=== PATIENT | male | born 1945 | race African-American/Black ===

== ENCOUNTER 2017-07-18 11:40 | Emergency (ER) | payer MEDICARE ==
[~2017-07-18] VITALS: Ht 195.6 cm; Wt 114.0 kg
[~2017-07-18 11:40] MED LIST: CHOL50008 PO; DULA10IN SQ; EMPA1TAB PO; LISI-515 PO; LIVA2TAB PO; LIVA4TAB PO; PERI8.6T PO; PIOG1TAB39 PO; SOTA80TA PO; TOPA50TA7 PO; VERA1TAB17 PO; VIAG100T PO; WARF-22 PO; WARF4TAB51 PO; [UNRECOGNIZED DRUG - CODE]
[2017-07-18 11:43] VITALS: BP 159/90; PULSE 77; RESP 17; TEMP 97.9; O2SAT 99
[2017-07-18] MEDS ORDERED: CHOL5000 PO (12:15)
[2017-07-18] MEDS ORDERED: LINA1TAB3 PO (12:15)
[2017-07-18] MEDS ORDERED: PRIM50TA5 PO (12:15)
[2017-07-18] MEDS ORDERED: XARE20TA PO (12:15)
[2017-07-18] MEDS ORDERED: ERGO2000 PO (12:15)
[2017-07-18] MEDS ORDERED: TOVI4TAB PO (12:15)
[2017-07-18] MEDS ORDERED: CALC0.009 TOPICAL (12:15)
[2017-07-18] MEDS ORDERED: GLIM4TAB PO (12:15)
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
[2017-07-18 13:16] LABS: INTERNATIONAL NORMALIZED RATIO 1.2 RATIO; PROTHROMBIN TIME - PATIENT 12.2 SEC (9.8-11.6)
== END 2017-07-18 14:54 | disposition home or self-care (01) ==
LOC: NEPD 11:40
DX: R04.0 Epistaxis (principal); E11.9 Type 2 diabetes mellitus without complications; E78.00 Pure hypercholesterolemia, unspecified; I10 Essential (primary) hypertension; I48.91 Unspecified atrial fibrillation; Z79.01 Long term (current) use of anticoagulants; Z79.84 Long term (current) use of oral hypoglycemic drugs; Z87.891 Personal history of nicotine dependence
CPT/HCPCS: 85610; 99282